=== PATIENT | male | born 1940 | race Caucasian/White ===

== ENCOUNTER → 2020-11-02 08:36 | Outpatient (CLI) | payer MEDICARE, OTHER, SELFPAY ==
[2020-11-02 09:12] LABS: COVID19 -Nasal RAPID Negative (Negative)
== END ==
PROVIDERS: Visit Provider Physician Assistant
DX: Z20.822 Contact with and (suspected) exposure to COVID-19 (principal)
CPT/HCPCS: 87635

== ENCOUNTER → 2021-06-29 08:58 | Outpatient (CLI) | payer MEDICARE, OTHER, SELFPAY ==
[2021-06-29] MEDS: COVID-19 VACC #3, MRNA(MOD) 50 MCG/0.25 ML VIAL IM (09:03)
== END ==
PROVIDERS: Visit Provider Internal Medicine
DX: Z23 Encounter for immunization (principal)
CPT/HCPCS: 0013A; 91301

== ENCOUNTER → 2022-01-22 10:49 | Outpatient (CLI) | payer MEDICARE, OTHER, SELFPAY ==
[2022-01-22 11:57] LABS: Add Manual Diff / Slide Review NO; Basophils Absolute Auto 0 /uL (0-100); Basophils Percent Auto 0.6 % (0-2); Eosinophils Absolute Auto 100 /uL (0-450); Eosinophils Percent Auto 1.9 % (2-4); Hematocrit 28.4 % (41-53); Hemoglobin 9.8 g/dL (13.5-17.5); Lymphocytes Absolute Auto 800 /uL (1100-4500); Mean Corpuscular HGB Conc 34.5 % (30-36); Mean Corpuscular Volume 92.7 fL (80-100); Monocytes Absolute Auto 600 /uL (0-900); Monocytes Percent Auto 14.5 % (3-14); Neutrophils Absolute Auto 2600 /uL (1500-7000); Platelet Count 201 X10^3/uL (150-400); Red Blood Cell Count 3.07 X10^6/uL (4.5-5.9); Red Cell Distribution Width 22.1 % (11.6-14.8); White Blood Cell Count 4.1 X10^3/uL (4.5-11.0)
[2022-01-22 12:05] LABS: Anisocytosis 2+; Poikilocytosis 1+
[2022-01-22 12:09] LABS: Alanine Aminotransferase 13 IU/L (<50); Albumin 3.7 g/dL (3.5-5.0); Albumin Globulin Ratio 1.7 (1.0-2.8); Alkaline Phosphatase 77 U/L (38-126); Aspartate Aminotransferase 17 IU/L (17-59); BUN Creatinine Ratio 12.9 (6-22); Bilirubin Total 0.4 mg/dL (0.2-1.3); Blood Urea Nitrogen 33 mg/dL (9-20); Carbon Dioxide 24 mmol/L (22-32); Chloride 101 mmol/L (98-107); Estimated Glomerular Filt Rate 25 mL/min (>60); Globulin 2.2 g/dL (1.7-4.1); Glucose 98 mg/dL (80-110); HEMOLYSIS < 15 (0-50); Potassium 3.6 mmol/L (3.4-5.1); Sodium 131 mmol/L (137-145); Total Protein 5.9 g/dL (6.3-8.2)
== END ==
DX: A31.0 Pulmonary mycobacterial infection (principal)
CPT/HCPCS: 36415; 80053; 85025

== ENCOUNTER → 2022-03-19 08:58 | Outpatient (CLI) | payer MEDICARE, OTHER, SELFPAY ==
[2022-03-19 10:00] LABS: Add Manual Diff / Slide Review NO; Basophils Absolute Auto 100 /uL (0-100); Basophils Percent Auto 3.2 % (0-2); Eosinophils Absolute Auto 200 /uL (0-450); Eosinophils Percent Auto 7.3 % (2-4); Hematocrit 29.1 % (41-53); Hemoglobin 9.9 g/dL (13.5-17.5); Lymphocytes Absolute Auto 600 /uL (1100-4500); Lymphocytes Percent Auto 28.1 % (25-40); Mean Corpuscular HGB Conc 34.2 % (30-36); Mean Corpuscular Hemoglobin 33.4 PG (26-34); Mean Corpuscular Volume 97.5 fL (80-100); Monocytes Absolute Auto 500 /uL (0-900); Neutrophils Absolute Auto 800 /uL (1500-7000); Neutrophils Percent Auto 37.4 % (50-75); Platelet Count 192 X10^3/uL (150-400); Red Blood Cell Count 2.98 X10^6/uL (4.5-5.9); Red Cell Distribution Width 23.4 % (11.6-14.8); White Blood Cell Count 2.2 X10^3/uL (4.5-11.0)
[2022-03-19 10:17] LABS: Anisocytosis 2+; Macrocytosis 2+; Poikilocytosis 1+
[2022-03-19 10:39] LABS: Alanine Aminotransferase 12 IU/L (<50); Albumin 3.4 g/dL (3.5-5.0); Albumin Globulin Ratio 1.5 (1.0-2.8); Alkaline Phosphatase 70 U/L (38-126); Aspartate Aminotransferase 19 IU/L (17-59); BUN Creatinine Ratio 10.9 (6-22); Bilirubin Total 0.2 mg/dL (0.2-1.3); Blood Urea Nitrogen 26 mg/dL (9-20); Calcium 8.4 mg/dL (8.4-10.2); Carbon Dioxide 22 mmol/L (22-32); Chloride 104 mmol/L (98-107); Estimated Glomerular Filt Rate 27 mL/min (>60); Globulin 2.3 g/dL (1.7-4.1); Glucose 84 mg/dL (80-110); HEMOLYSIS < 15 (0-50); Potassium 3.7 mmol/L (3.4-5.1); Sodium 134 mmol/L (137-145); Total Protein 5.7 g/dL (6.3-8.2)
== END ==
PROVIDERS: Referring Provider Internal Medicine Infectious Disease; Visit Provider Internal Medicine Infectious Disease
DX: A31.0 Pulmonary mycobacterial infection (principal)
CPT/HCPCS: 36415; 80053; 85025

== ENCOUNTER → 2022-04-22 14:18 | Outpatient (CLI) | payer MEDICARE, OTHER, SELFPAY ==
[2022-04-22 16:23] LABS: Add Manual Diff / Slide Review NO; Basophils Absolute Auto 100 /uL (0-100); Basophils Percent Auto 2.6 % (0-2); Eosinophils Absolute Auto 0 /uL (0-450); Eosinophils Percent Auto 0.1 % (2-4); Hematocrit 30.5 % (41-53); Hemoglobin 10.5 g/dL (13.5-17.5); Lymphocytes Absolute Auto 400 /uL (1100-4500); Mean Corpuscular HGB Conc 34.5 % (30-36); Mean Corpuscular Hemoglobin 34.1 PG (26-34); Mean Corpuscular Volume 98.9 fL (80-100); Monocytes Absolute Auto 200 /uL (0-900); Monocytes Percent Auto 7.1 % (3-14); Neutrophils Absolute Auto 2500 /uL (1500-7000); Neutrophils Percent Auto 77.2 % (50-75); Platelet Count 208 X10^3/uL (150-400); Red Blood Cell Count 3.09 X10^6/uL (4.5-5.9); Red Cell Distribution Width 22.1 % (11.6-14.8); White Blood Cell Count 3.2 X10^3/uL (4.5-11.0)
[2022-04-22 16:43] LABS: Alanine Aminotransferase 13 IU/L (<50); Albumin 3.5 g/dL (3.5-5.0); Albumin Globulin Ratio 1.3 (1.0-2.8); Alkaline Phosphatase 74 U/L (38-126); Aspartate Aminotransferase 20 IU/L (17-59); BUN Creatinine Ratio 11.4 (6-22); Bilirubin Total 0.2 mg/dL (0.2-1.3); Blood Urea Nitrogen 29 mg/dL (9-20); Calcium 8.4 mg/dL (8.4-10.2); Carbon Dioxide 22 mmol/L (22-32); Chloride 105 mmol/L (98-107); Estimated Glomerular Filt Rate 25 mL/min (>60); Globulin 2.6 g/dL (1.7-4.1); Glucose 120 mg/dL (80-110); HEMOLYSIS < 15 (0-50); Sodium 135 mmol/L (137-145); Total Protein 6.1 g/dL (6.3-8.2)
[2022-04-22 17:06] LABS: Anisocytosis 2+; Poikilocytosis 1+
[2022-04-22 17:08] LABS: Macrocytosis 1+
== END ==
PROVIDERS: Referring Provider Internal Medicine Infectious Disease; Visit Provider Internal Medicine Infectious Disease
DX: A31.0 Pulmonary mycobacterial infection (principal)
CPT/HCPCS: 36415; 80053; 85025

== ENCOUNTER → 2022-06-18 10:54 | Outpatient (CLI) | payer MEDICARE, OTHER, SELFPAY ==
[2022-06-18 11:50] LABS: Add Manual Diff / Slide Review NO; Basophils Absolute Auto 100 /uL (0-100); Basophils Percent Auto 3.7 % (0-2); Eosinophils Absolute Auto 100 /uL (0-450); Eosinophils Percent Auto 5.4 % (2-4); Hematocrit 27.4 % (41-53); Hemoglobin 9.5 g/dL (13.5-17.5); Lymphocytes Absolute Auto 700 /uL (1100-4500); Lymphocytes Percent Auto 26.8 % (25-40); Mean Corpuscular HGB Conc 34.8 % (30-36); Mean Corpuscular Hemoglobin 34.1 PG (26-34); Monocytes Absolute Auto 500 /uL (0-900); Neutrophils Absolute Auto 1300 /uL (1500-7000); Neutrophils Percent Auto 47.1 % (50-75); Platelet Count 168 X10^3/uL (150-400); Red Blood Cell Count 2.79 X10^6/uL (4.5-5.9); Red Cell Distribution Width 18.4 % (11.6-14.8); White Blood Cell Count 2.7 X10^3/uL (4.5-11.0)
[2022-06-18 13:10] LABS: Alanine Aminotransferase 15 IU/L (<50); Albumin 3.4 g/dL (3.5-5.0); Albumin Globulin Ratio 1.4 (1.0-2.8); Alkaline Phosphatase 71 U/L (38-126); Aspartate Aminotransferase 18 IU/L (17-59); BUN Creatinine Ratio 12.4 (6-22); Bilirubin Total 0.2 mg/dL (0.2-1.3); Blood Urea Nitrogen 32 mg/dL (9-20); Calcium 8.4 mg/dL (8.4-10.2); Carbon Dioxide 22 mmol/L (22-32); Chloride 104 mmol/L (98-107); Estimated Glomerular Filt Rate 24 mL/min (>60); Globulin 2.4 g/dL (1.7-4.1); Glucose 78 mg/dL (80-110); HEMOLYSIS < 15 (0-50); Potassium 3.9 mmol/L (3.4-5.1); Sodium 135 mmol/L (137-145); Total Protein 5.8 g/dL (6.3-8.2)
== END ==
PROVIDERS: Referring Provider Internal Medicine Infectious Disease; Visit Provider Internal Medicine Infectious Disease
DX: A31.0 Pulmonary mycobacterial infection (principal)
CPT/HCPCS: 36415; 80053; 85025

== ENCOUNTER → 2022-07-22 09:45 | Outpatient (CLI) | payer MEDICARE, OTHER, SELFPAY ==
[2022-07-22 10:53] LABS: Add Manual Diff / Slide Review NO; Basophils Absolute Auto 100 /uL (0-100); Basophils Percent Auto 2.3 % (0-2); Eosinophils Absolute Auto 200 /uL (0-450); Eosinophils Percent Auto 7.4 % (2-4); Hematocrit 30.8 % (41-53); Hemoglobin 10.4 g/dL (13.5-17.5); Lymphocytes Absolute Auto 600 /uL (1100-4500); Lymphocytes Percent Auto 23.3 % (25-40); Mean Corpuscular HGB Conc 33.8 % (30-36); Mean Corpuscular Hemoglobin 34.1 PG (26-34); Mean Corpuscular Volume 100.7 fL (80-100); Monocytes Absolute Auto 400 /uL (0-900); Monocytes Percent Auto 15.3 % (3-14); Neutrophils Absolute Auto 1200 /uL (1500-7000); Neutrophils Percent Auto 51.7 % (50-75); Platelet Count 166 X10^3/uL (150-400); Red Blood Cell Count 3.05 X10^6/uL (4.5-5.9); White Blood Cell Count 2.4 X10^3/uL (4.5-11.0)
[2022-07-22 11:10] LABS: Alanine Aminotransferase 16 IU/L (<50); Albumin 3.6 g/dL (3.5-5.0); Albumin Globulin Ratio 1.4 (1.0-2.8); Alkaline Phosphatase 68 U/L (38-126); Aspartate Aminotransferase 22 IU/L (17-59); BUN Creatinine Ratio 10.6 (6-22); Bilirubin Total 0.2 mg/dL (0.2-1.3); Blood Urea Nitrogen 30 mg/dL (9-20); Calcium 7.9 mg/dL (8.4-10.2); Carbon Dioxide 21 mmol/L (22-32); Chloride 103 mmol/L (98-107); Estimated Glomerular Filt Rate 22 mL/min (>60); Globulin 2.6 g/dL (1.7-4.1); Glucose 98 mg/dL (80-110); HEMOLYSIS < 15 (0-50); Potassium 4.2 mmol/L (3.4-5.1); Sodium 133 mmol/L (137-145); Total Protein 6.2 g/dL (6.3-8.2)
== END ==
PROVIDERS: Referring Provider Internal Medicine Infectious Disease; Visit Provider Internal Medicine Infectious Disease
DX: A31.0 Pulmonary mycobacterial infection (principal)
CPT/HCPCS: 36415; 80053; 85025

== ENCOUNTER → 2022-09-02 10:16 | Outpatient (CLI) | payer MEDICARE, OTHER, SELFPAY ==
[2022-09-02 11:03] LABS: Add Manual Diff / Slide Review NO; Basophils Absolute Auto 0 /uL (0-100); Basophils Percent Auto 1.7 % (0-2); Eosinophils Absolute Auto 200 /uL (0-450); Eosinophils Percent Auto 6.2 % (2-4); Hematocrit 33.7 % (41-53); Hemoglobin 11.3 g/dL (13.5-17.5); Lymphocytes Absolute Auto 600 /uL (1100-4500); Lymphocytes Percent Auto 20.8 % (25-40); Mean Corpuscular HGB Conc 33.6 % (30-36); Mean Corpuscular Hemoglobin 33.7 PG (26-34); Mean Corpuscular Volume 100.1 fL (80-100); Monocytes Absolute Auto 600 /uL (0-900); Neutrophils Absolute Auto 1300 /uL (1500-7000); Neutrophils Percent Auto 50.3 % (50-75); Platelet Count 163 X10^3/uL (150-400); Red Blood Cell Count 3.36 X10^6/uL (4.5-5.9); Red Cell Distribution Width 20.9 % (11.6-14.8); White Blood Cell Count 2.7 X10^3/uL (4.5-11.0)
[2022-09-02 11:07] LABS: Alanine Aminotransferase 18 IU/L (<50); Albumin 3.6 g/dL (3.5-5.0); Albumin Globulin Ratio 1.3 (1.0-2.8); Alkaline Phosphatase 63 U/L (38-126); Aspartate Aminotransferase 26 IU/L (17-59); BUN Creatinine Ratio 9.8 (6-22); Bilirubin Total 0.3 mg/dL (0.2-1.3); Blood Urea Nitrogen 30 mg/dL (9-20); Calcium 8.2 mg/dL (8.4-10.2); Carbon Dioxide 24 mmol/L (22-32); Chloride 104 mmol/L (98-107); Estimated Glomerular Filt Rate 20 mL/min (>60); Globulin 2.7 g/dL (1.7-4.1); Glucose 94 mg/dL (80-110); HEMOLYSIS < 15 (0-50); Potassium 4.5 mmol/L (3.4-5.1); Sodium 134 mmol/L (137-145); Total Protein 6.3 g/dL (6.3-8.2)
[2022-09-02 11:34] LABS: Macrocytosis 1+; Ovalocytes 2+
[2022-09-02 11:35] LABS: Anisocytosis 1+; Poikilocytosis 1+
== END ==
PROVIDERS: Referring Provider Internal Medicine Infectious Disease; Visit Provider Internal Medicine Infectious Disease
DX: A31.0 Pulmonary mycobacterial infection (principal)
CPT/HCPCS: 36415; 80053; 85025

== ENCOUNTER → 2022-10-22 11:19 | Outpatient (CLI) | payer MEDICARE, OTHER, SELFPAY ==
[2022-10-22 12:04] LABS: Add Manual Diff / Slide Review NO; Basophils Absolute Auto 0 /uL (0-100); Basophils Percent Auto 1.5 % (0-2); Eosinophils Absolute Auto 200 /uL (0-450); Eosinophils Percent Auto 8.3 % (2-4); Hematocrit 30.5 % (41-53); Hemoglobin 10.4 g/dL (13.5-17.5); Lymphocytes Absolute Auto 800 /uL (1100-4500); Lymphocytes Percent Auto 35.1 % (25-40); Mean Corpuscular HGB Conc 33.9 % (30-36); Mean Corpuscular Hemoglobin 33.7 PG (26-34); Mean Corpuscular Volume 99.3 fL (80-100); Monocytes Absolute Auto 400 /uL (0-900); Monocytes Percent Auto 18.3 % (3-14); Neutrophils Absolute Auto 800 /uL (1500-7000); Neutrophils Percent Auto 36.8 % (50-75); Platelet Count 104 X10^3/uL (150-400); Red Blood Cell Count 3.07 X10^6/uL (4.5-5.9); Red Cell Distribution Width 20.2 % (11.6-14.8); White Blood Cell Count 2.1 X10^3/uL (4.5-11.0)
[2022-10-22 12:37] LABS: Alanine Aminotransferase 18 IU/L (<50); Albumin 3.6 g/dL (3.5-5.0); Albumin Globulin Ratio 1.3 (1.0-2.8); Alkaline Phosphatase 55 U/L (38-126); Aspartate Aminotransferase 20 IU/L (17-59); BUN Creatinine Ratio 11.7 (6-22); Bilirubin Total 0.3 mg/dL (0.2-1.3); Blood Urea Nitrogen 37 mg/dL (9-20); Carbon Dioxide 20 mmol/L (22-32); Chloride 100 mmol/L (98-107); Estimated Glomerular Filt Rate 19 mL/min (>60); Globulin 2.8 g/dL (1.7-4.1); Glucose 95 mg/dL (80-110); HEMOLYSIS < 15 (0-50); Potassium 3.8 mmol/L (3.4-5.1); Sodium 129 mmol/L (137-145); Total Protein 6.4 g/dL (6.3-8.2)
[2022-10-22 13:25] LABS: Anisocytosis 1+
== END ==
PROVIDERS: Referring Provider Internal Medicine Infectious Disease; Visit Provider Internal Medicine Infectious Disease
DX: A31.0 Pulmonary mycobacterial infection (principal)
CPT/HCPCS: 36415; 80053; 85025

== ENCOUNTER → 2022-11-26 11:29 | Outpatient (CLI) | payer MEDICARE, OTHER, SELFPAY ==
[2022-11-26 12:24] LABS: Add Manual Diff / Slide Review NO; Basophils Absolute Auto 100 /uL (0-100); Basophils Percent Auto 2.2 % (0-2); Eosinophils Absolute Auto 200 /uL (0-450); Eosinophils Percent Auto 5.9 % (2-4); Hematocrit 28.7 % (41-53); Hemoglobin 9.9 g/dL (13.5-17.5); Lymphocytes Absolute Auto 900 /uL (1100-4500); Mean Corpuscular HGB Conc 34.5 % (30-36); Mean Corpuscular Hemoglobin 34.6 PG (26-34); Mean Corpuscular Volume 100.2 fL (80-100); Monocytes Absolute Auto 600 /uL (0-900); Neutrophils Absolute Auto 1500 /uL (1500-7000); Neutrophils Percent Auto 45.9 % (50-75); Platelet Count 212 X10^3/uL (150-400); Red Blood Cell Count 2.86 X10^6/uL (4.5-5.9); Red Cell Distribution Width 19.8 % (11.6-14.8); White Blood Cell Count 3.3 X10^3/uL (4.5-11.0)
[2022-11-26 12:50] LABS: Alanine Aminotransferase 18 IU/L (<50); Albumin 3.2 g/dL (3.5-5.0); Albumin Globulin Ratio 1.3 (1.0-2.8); Alkaline Phosphatase 55 U/L (38-126); Aspartate Aminotransferase 23 IU/L (17-59); BUN Creatinine Ratio 11.4 (6-22); Bilirubin Total 0.4 mg/dL (0.2-1.3); Blood Urea Nitrogen 34 mg/dL (9-20); Calcium 8.3 mg/dL (8.4-10.2); Carbon Dioxide 25 mmol/L (22-32); Chloride 101 mmol/L (98-107); Estimated Glomerular Filt Rate 20 mL/min (>60); Globulin 2.4 g/dL (1.7-4.1); Glucose 95 mg/dL (80-110); HEMOLYSIS < 15 (0-50); Potassium 3.7 mmol/L (3.4-5.1); Sodium 130 mmol/L (137-145); Total Protein 5.6 g/dL (6.3-8.2)
== END ==
PROVIDERS: Referring Provider Internal Medicine Infectious Disease; Visit Provider Internal Medicine Infectious Disease
DX: A31.0 Pulmonary mycobacterial infection (principal)
CPT/HCPCS: 36415; 80053; 85025

== ENCOUNTER → 2023-01-07 10:32 | Outpatient (CLI) | payer MEDICARE, OTHER, SELFPAY ==
[2023-01-07 11:03] LABS: Add Manual Diff / Slide Review NO; Basophils Absolute Auto 0 /uL (0-100); Eosinophils Absolute Auto 100 /uL (0-450); Eosinophils Percent Auto 2.6 % (2-4); Hematocrit 32.7 % (41-53); Lymphocytes Absolute Auto 700 /uL (1100-4500); Mean Corpuscular HGB Conc 33.7 % (30-36); Mean Corpuscular Volume 101.2 fL (80-100); Monocytes Absolute Auto 600 /uL (0-900); Monocytes Percent Auto 17.3 % (3-14); Neutrophils Absolute Auto 2200 /uL (1500-7000); Neutrophils Percent Auto 60.1 % (50-75); Platelet Count 192 X10^3/uL (150-400); Red Blood Cell Count 3.23 X10^6/uL (4.5-5.9); Red Cell Distribution Width 19.5 % (11.6-14.8); White Blood Cell Count 3.6 X10^3/uL (4.5-11.0)
[2023-01-07 11:23] LABS: Alanine Aminotransferase 19 IU/L (<50); Albumin 3.7 g/dL (3.5-5.0); Albumin Globulin Ratio 1.6 (1.0-2.8); Alkaline Phosphatase 65 U/L (38-126); Aspartate Aminotransferase 21 IU/L (17-59); BUN Creatinine Ratio 10.1 (6-22); Bilirubin Total 0.4 mg/dL (0.2-1.3); Blood Urea Nitrogen 31 mg/dL (9-20); Calcium 8.3 mg/dL (8.4-10.2); Carbon Dioxide 25 mmol/L (22-32); Chloride 102 mmol/L (98-107); Estimated Glomerular Filt Rate 20 mL/min (>60); Globulin 2.3 g/dL (1.7-4.1); Glucose 96 mg/dL (80-110); HEMOLYSIS < 15 (0-50); Potassium 4.2 mmol/L (3.4-5.1); Sodium 131 mmol/L (137-145)
== END ==
PROVIDERS: PCP Internal Medicine; Referring Provider Internal Medicine Infectious Disease; Visit Provider Internal Medicine Infectious Disease
DX: A31.0 Pulmonary mycobacterial infection (principal)
CPT/HCPCS: 36415; 80053; 85025